=== PATIENT | male | born 1995 | race Caucasian/White ===

== ENCOUNTER → 2018-04-13 11:06 | Outpatient (CLI) | payer BC ==
[2016-07-17 10:28] VITALS: BMI 31.9
[~2018-04-13 11:06] MED LIST: DILAUDID2 MG PO; IBUPROFEN200 MG PO
== END | disposition home or self-care (01) ==
LOC: D.MRI 11:06
DX: M25.562 Pain in left knee (principal)

== ENCOUNTER 2018-05-13 07:25 | Day surgery (SDC) | payer BC ==
[~2018-05-13] VITALS: Ht 182.9 cm; Wt 99.8 kg
--- NOTE | ~2018-05-13 | OP ---
PATIENT NAME: LILA DAVILA MEDICAL RECORD: [id number] :95 LOCATION:[facility] ADMISSION DATE: SURGEON: SUSIE WITT MD DATE OF OPERATION: 05/13/2018 PREOPERATIVE DIAGNOSIS: Recurrent anterior cruciate ligament tear. POSTOPERATIVE DIAGNOSIS: Recurrent anterior cruciate ligament tear. PROCEDURE: Revision anterior cruciate ligament reconstruction, [id number]-ytnaoa-jhyv allograft. SURGEON: Susie Witt MD ANESTHESIA: General. INTRAOPERATIVE COMPLICATIONS: None. SUMMARY OF PATHOLOGIC FINDINGS: Essentially, the patient had completely torn down his previous anterior cruciate ligament reconstruction. This was his third such injury. This is consistent with the injury he had while playing basketball, unprotected without his brace. Fortunately, the patient does not have any signs of further meniscal damage or chondromalacia. OPERATIVE SUMMARY IN DETAIL: After obtaining the appropriate preoperative orthopedic surgery consent as well as anesthetic consultation, evaluation and clearance, the patient was brought to the operating room and placed on the operating table in supine position. After general laryngeal mask airway was administered, tourniquet was placed in the proximal aspect of the left lower extremity. Left lower extremity was then prepped in a routine sterile fashion. The leg was elevated and exsanguinated, tourniquet was inflated to 350 mmHg. Routine inferolateral portal was established followed by superomedial portal and inferomedial portal. Diagnostic arthroscopy revealed the patient had the tearing as above. The old graft was removed with 5.0 resector. Notchplasty was created further. Again, the medial and lateral compartments were pristine as well as the patellofemoral joint. At this point, the Arthrex ACL tibial tunnel guide was utilized to create an 11-mm tunnel in the tibia back to the footprint of the ACL on the tibia and then the over the top guide was utilized to create a femoral tunnel. No untoward effects were noted from previous ACL reconstructions. Mild debridement was required. The 10-mm clme-jvelxk-[id number] allograft already having been prepared with the [employer]rex TightRope system was deployed under arthroscopic evaluation with good seating and fill both in the tibia and the femur. Having completed this, the patient's previously placed post was backed out, it was about 3 turns and then reused against secure the tibial component as the TightRope had already been secured firmly. Knee was cycled several times. Final tension was created and the patient's anterior drawer was negative as was his pivot shift. Having completed this, the incisions were closed with 2-0 Vicryl followed by skin maryam and 4-0 Prolene for the portals. Sterile dressings were applied. Tourniquet was deflated. The patient was awakened and taken to the recovery room in stable condition. All final needle and sponge counts were correct. 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
[2018-05-13 08:20] VITALS: BP 154/88; Ht 182.9 cm; Wt 99.8 kg
[2018-05-13] MEDS ORDERED: NORCO 10-325 TA1 TAB PO (11:05)
== END 2018-05-13 12:45 | disposition home or self-care (01) ==
LOC: D.OPS 07:25 → D.PAN 09:25 → D.OPS 09:30 → D.PAN 16:15 → D.OPS 16:15
DX: S83.512A Sprain of anterior cruciate ligament of left knee, initial encounter (principal); Z01.812 Encounter for preprocedural laboratory examination